=== PATIENT | female | born 1970 | race Hispanic/Latino ===

== ENCOUNTER 2022-07-11 09:06 | Emergency (ER) | payer OTHER ==
[2022-07-11 10:58] LABS: #Lymphocytes 0.9 thou/uL (1.20-3.40); #Monocytes 0.6 thou/uL (0.11-0.59); #Neutrophils 13.3 thou/uL (1.40-6.50); %Basophils 0.2 % (0.0-1.0); %Eosinophils 0.1 % (0.0-10.0); %Lymphocytes 5.9 % (21.0-51.0); %Monocytes 4.1 % (0.0-10.0); %Neutrophils 89.7 % (42.0-75.0); Hemoglobin 15.4 g/dL (12.0-16.0); Mean Corpuscular HGB CONC 33.4 g/dL (32.0-36.0); Mean Corpuscular Hemoglobin 31.8 pg (27.0-31.0); Mean Corpuscular Volume 95.2 fl (78.0-98.0); Mean Platelet Volume 8.4 fL (7.4-10.4); Platelet Count 288 10x3/uL (130-400); RBC Distribution Width 11.7 % (11.5-14.5); Red Blood Cell (RBC) Count 4.84 mill/uL (4.20-5.40); White Blood Cell (WBC) Count 14.8 10x3/uL (4.8-10.8)
[2022-07-11] MEDS ORDERED: Iopamidol-370 76% 500 ML 1 ML ONE (11:16)
[2022-07-11 11:23] LABS: ALT (SGPT) 92 U/L (8-55); AST (SGOT) 69 U/L (5-34); Albumin 4.8 g/dL (3.5-5.0); Alkaline Phosphatase 107 U/L (40-110); Anion Gap 17 mmol/L (10-20); BUN (Urea Nitrogen) 10 mg/dL (9.8-20.1); Bilirubin, Total 0.5 mg/dL (0.2-1.2); Calc. Creatinine Clearance 0 mL/min (70-130); Calcium 10.5 mg/dL (7.8-10.44); Carbon Dioxide 27 mmol/L (22-29); Chloride 99 mmol/L (98-107); Estimated GFR 92; Globulin 4.2 g/dL (2.4-3.5); Glucose 157 mg/dL (70-105); Lipase 31 U/L (8-78); Potassium 4.8 mmol/L (3.5-5.1); Sodium 138 mmol/L (136-145)
[2022-07-11] MEDS ORDERED: Ondansetron PF 4 MG/2 ML Vial ONE (12:28)
[2022-07-11 12:45] LABS: Bilirubin Negative (Negative); Blood, Urine Negative (Negative); Clarity Extra Turbid (Clear); Glucose, Urine (Dipstick) Normal (Negative); Ketone, Urine Trace mg/dL (Negative); Leukocyte Negative Leu/uL (Negative); Nitrite Negative (Negative); Protein, Urine (Dipstick) 10 mg/dL (Neg-Trace); Specific Gravity, Urine 1.024 (1.002-1.036); Urobilinogen Normal mg/dL (Less than 2)
[2022-07-11 12:49] LABS: Bacteria/HPF Rare-Few HPF (None Seen)
== END 2022-07-11 13:53 | disposition home or self-care (01) ==
LOC: ERS 09:06
DX: K52.9 Noninfective gastroenteritis and colitis, unspecified (principal)
CPT/HCPCS: 36415; 74177; 80053; 81003; 83690; 85025; 96374; J2405; Q9967